=== PATIENT | male | born 1980 | race Caucasian/White ===

== ENCOUNTER 2017-04-21 15:31 | Emergency (ER) | payer BC, OTHER ==
[2017-04-21 16:20] LABS: BASOPHILS % 0.3 (0.0-1.5); EOSINOPHILS % 0.4 % (0.0-6.8); MEAN CORPUSCULAR HEMOGLOBIN 30.3 pg (28.0-34.0); MEAN CORPUSCULAR VOLUME 90.5 fl (80.0-100.0); MONOCYTES % 4.9 % (0.0-11.0); NEUTROPHILS # 7.8 # k/uL (1.4-7.7)
[2017-04-21] MEDS ORDERED: ONDANSETRON HCL/PF 4 MG/ 2ML VIAL ONE (16:24)
[2017-04-21 16:26] LABS: eGFR (African) > 60; eGFR (Non-African) > 60
[2017-04-21] MEDS ORDERED: LORazepam 2 MG/ML VIAL ONE (16:27)
[2017-04-21] MEDS ORDERED: ONDANSETRON HCL/PF 4 MG/ 2ML VIAL IM ONE ×3 (16:36→19:34)
[2017-04-21] MEDS ORDERED: LORazepam 2 MG/ML VIAL IM ONE ×3 (16:37→19:08)
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
[2017-04-21] MEDS ORDERED: ONDANSETRON HCL 4 MG TAB.RAPDIS PO ONE (19:07)
[2017-04-21 21:46] VITALS: BP 132/86
[2017-04-22 05:39] LABS: ABG BASE EXCESS 12.1 (-2 - +2); ABG PH 7.6 (7.35-7.45)
== END 2017-04-21 20:00 | disposition home or self-care (01) ==
LOC: ED 15:31
DX: R11.2 Nausea with vomiting, unspecified (principal); F11.20 Opioid dependence, uncomplicated; F19 Other psychoactive substance related disorders
CPT/HCPCS: 80053; 83690; 85025; 85610; J2060; J2405; 36600; 82803; 96372; 99283; S1016